=== PATIENT | male | born 1995 | race Caucasian/White ===

== ENCOUNTER 2019-08-09 16:33 | Emergency (ER) | payer OTHER ==
[~2019-08-09] VITALS: Ht 165.1 cm; Wt 56.7 kg
[2019-08-09 16:49] LABS: INFLUENZA A ANTIGEN Positive (Negative); INFLUENZA B ANTIGEN Negative (Negative)
[2019-08-09] MEDS ORDERED: TESSALON PERLE100 MG PO (17:12)
[2019-08-09] MEDS ORDERED: TYLENOL WITH CO1 TA1 PO (17:12)
[2019-08-09] MEDS ORDERED: PROMETHAZI6.25 MG/5 PO (17:12)
[2019-08-09 17:40] VITALS: BP 139/78
[2019-08-09] MEDS ORDERED: TAMIFLU75 MG PO (17:44)
== END 2019-08-09 17:40 | disposition home or self-care (01) ==
LOC: M.ERS 16:33
PROVIDERS: Physician Assistant
DX: J10.1 Influenza due to other identified influenza virus with other respiratory manifestations (principal)